=== PATIENT | male | born 1980 | race Caucasian/White ===

== ENCOUNTER 2019-09-16 07:49 | Inpatient (IN) | payer BC, SELFPAY ==
[~2019-09-16] VITALS: Ht 188 cm; Wt 96.1 kg
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
[2019-09-16] MEDS ORDERED: OLANZapine ORAL DISINTEGRATING TAB 5MG PO PRN (10:00)
[2019-09-16] MEDS ORDERED: ACETAMINOPHEN TAB 650MG DOSE (2X325MG) PO PRN (10:00)
[2019-09-16] MEDS ORDERED: MOM 30ML SUSPENSION UDC PO PRN (10:00)
[2019-09-16 14:08] VITALS: BP 152/102
[2019-09-16] MEDS ORDERED: PROPRANOLOL 10 MG TAB PO ONE (15:00)
[2019-09-16 15:56] VITALS: BP 134/82
[2019-09-16 18:00] VITALS: BP 134/84
[2019-09-16] MEDS: IBUPROFEN 400 MG TAB PO PRN (20:04)
[2019-09-16] MEDS: traZODone 50 MG TAB PO PRN (21:12)
[2019-09-17 06:25] VITALS: BP 136/71
[2019-09-17] MEDS: IBUPROFEN 400 MG TAB PO PRN (08:38)
--- NOTE | 2019-09-17 10:17 | MHHPEPDOC ---
[facility] History & Physical History and Physical DATE OF ADMISSION: Sep 16, 2019 at 09:47 New Patient Tin Cedeno MRN: N/A Date of : N/A Date of Service: 09/17/2019 Chief Complaint "I want to start antidepressant." History of Present Illness The patient, a 38-year-old man who was seen in the ER by myself, is admitted to the inpatient unit. He reports that since his admission yesterday he has been feeling somewhat better, finding the environment more sociable and that he has begun to reflect. Initially, he reported feeling ambivalent and frightened of the unit especially the locked nature. 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 He reports he was able to sleep well last night and feels motivated for treatment. He reports he is ready to try an antidepressant reporting that his long-term depressed mood and difficulty adjusting is a significant problem for him. He continues to discuss about the psychosocial issues that have brought him in but feels safe here, reportedly "safer than I have felt in a long time." The psychosocial information is extracted from my previous note and updated as appropriate. Review Of Systems Depression: As above. Anxiety: No changes. Tere: No changes. Psychotic: No changes. Trauma: No changes. Borderline: No changes. Past Psychiatric History The patient reports no history of psychiatric admissions, medication trials or current follow up. Allergies Please see below. Family Psychiatric History The patient denies/is unaware any history of mental health history including addictions and suicide. Social History The patient currently lives alone as his girlfriend had recently left him. He reports that the relationship was relatively long of 2 years. He reports that their relationship had been cantankerous and had been going "on the rocks." He is never with no children at this time. He has no history of trauma or abuse growing up. Reports good social support from his mother. He reports growing up in the local area. He describes that his alcohol use can be problematic and that he will drink to excess at times. Reports smoking tobacco, roughly half a pack a day. Denies any cannabis use, opioids, stimulants or other problems at this time. Substance Abuse History As above for opioids and tobacco. Medical History Patient has no significant past medical history. Mental Status Examination General: Well dressed with good hygiene Speech: Spontaneous and fluid Thought processes: Linear and logical MSK: Smooth and coordinated gait, no signs of tremors or involuntary orofacial movements Thought content: Future orientated Abstract reasoning, and computation: Intact Description of associations: Intact Description of abnormal or psychotic thoughts: Denies any suicidal or homicidal ideation. Denies any auditory or visual hallucinations. Does not appear to be responding to internal stimuli. Does not appear to be endorsing any bizarre or paranoid ideation. Judgment: fair Insight: fair Orientation: Alert and orientated 3 Cognition: Grossly normal Recent and remote memory: Intact Attention span and concentration: Intact Fund of knowledge: Adequate Mood: "okay" Affect: Euthymic with a full range Diagnoses Unspecified depressive disorder. Alcohol use disorder, moderate. Tobacco use disorder, moderate. Assessment and Plan Unspecified depressive disorder: Start Wellbutrin 150 mg extended release daily. Discussed risks, benefits, and potential side effects with patient as well as alternative options. Alcohol use disorder: Continue CIWA. Tobacco use disorder: Offered nicotine patch. Disposition Patient will need to be admitted for greater than 2 midnights in order to observe and treat his depression and plan for safe discharge. Problem List 1. Risk for suicide. 2. Depression. 3. Substance abuse. Initial Treatment Plan 1. Patient was admitted on a 9.39 legal status. 2. Complete history was obtained. 3. With patients permission, family will be contacted and database will be expanded. 4. Patients medication regimen will be reviewed and changed accordingly. 5. Patient will be provided with protected environment. 6. Patient will be treated with individual, group, and milieu therapies. 7. Patient will receive supportive psych-education. 8. Discharge planning will commence immediately. 9. Outpatient follow-up treatment will be strongly recommended. 10. The initial treatment plan will focus initially on: Estimated Length Of Stay 3 days Time Spent 70 minutes. Friday Vital Signs Vital Signs Date Time Temp Pulse Resp B/P (MAP) Pulse Ox O2 Delivery O2 Flow Rate FiO2 09/17/19 06:25 98.8 69 18 136/71 (92) Room Air 09/16/19 12:43 99 Medications Scheduled Bupropion Hcl (Bupropion Xl) 150 Mg Tab.er.24h, 150 MG PO DAILY for mood Scheduled PRN Trazodone HCl (Trazodone HCl) 100 Mg Tablet, 100 MG PO QHSP PRN for INSOMNIA Allergies Coded Allergies: No Known Allergies (Unverified , 09/16/19) MUKESH ROE 3, 2020 10:17
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
[2019-09-17 18:00] VITALS: BP 150/88
[2019-09-17] MEDS: buPROPion **XL** TABLET 150MG (WELLBUTRIN XL) PO SCH (20:57)
[2019-09-17] MEDS: traZODone 50 MG TAB PO PRN (21:44)
[2019-09-18 06:39] VITALS: BP 118/78
[2019-09-18] MEDS: buPROPion **XL** TABLET 150MG (WELLBUTRIN XL) PO SCH (08:17)
[2019-09-18] MEDS: IBUPROFEN 400 MG TAB PO PRN ×2 (08:18→18:35)
[2019-09-18] MEDS ORDERED: INFLUENZA QUADRIVALENT PF VACCINE 0.5ML SYRINGE (90686) IM ONE (09:00)
[2019-09-18 15:51] VITALS: BP 156/85
--- NOTE | 2019-09-18 19:27 | MHIPN ---
DATE: 09/18/2019 The patient today states, "I am feeling great." He is denying suicidal ideation. He says that he slept good last night and he has no complaints. MENTAL STATUS EXAMINATION: He is alert and oriented times three. He is pleasant, cooperative, verbally spontaneous. Eye contact is good. There is no formal thought disorder. His mood is "great." His affect is full range and appropriate. He is not psychotic, suicidal or homicidal. He is denying suicidal or homicidal ideation. Concentration fair. Insight and judgment fair. DIAGNOSES: Unspecified depressive disorder. Alcohol use disorder, moderate. TREATMENT PLAN: At this point, we will continue to monitor the patient for continued elevation and stabilization of his mood and continued resolution of suicidal ideation and titrate his medications as indicated. SANKET
[2019-09-18] MEDS: traZODone 100 MG TAB PO PRN (21:50)
[2019-09-19 06:38] VITALS: BP 149/85
[2019-09-19] MEDS: IBUPROFEN 400 MG TAB PO PRN (07:23)
[2019-09-19] MEDS: buPROPion **XL** TABLET 150MG (WELLBUTRIN XL) PO SCH (08:16)
[2019-09-19 15:44] VITALS: BP 136/84
--- NOTE | 2019-09-19 19:54 | MHIPN ---
DATE: 09/19/2019 The patient today states that he is feeling good. He has no complaints other than he does not sleep as well and would like for me to increase his trazodone. He is denying suicidal thoughts. MENTAL STATUS EXAMINATION: He is alert and oriented times three. He is pleasant, cooperative, verbally spontaneous. Eye contact is good. Mood is good. Affect is full range and appropriate. He is not psychotic, suicidal or homicidal. Concentration is fair. Memory intact. Insight and judgment good. DIAGNOSES: Unspecified depressive disorder. Alcohol use disorder, moderate.. TREATMENT PLAN: At this point, we will continue to monitor the patient for continued elevation and stabilization of his mood and continued resolution of suicidal ideations. We will increase the trazodone to 150 mg for sleep. MTDD
[2019-09-19] MEDS: traZODone 100 MG TAB PO PRN (22:32)
[2019-09-20 06:18] VITALS: BP 138/80
[2019-09-20] MEDS: buPROPion **XL** TABLET 150MG (WELLBUTRIN XL) PO SCH (08:24)
[2019-09-20] MEDS ORDERED: TRAZ10TA PO (10:30)
[2019-09-20] MEDS ORDERED: BUPR150T3 PO (10:30)
--- NOTE | 2019-09-20 10:31 | MHDSPDOC ---
[facility] Discharge Summary Discharge Summary DATE OF ADMISSION: Sep 16, 2019 at 09:47 DATE OF DISCHARGE: 09/20/19 Discharge Tin Cedeno MRN: N/A Date of : N/A Date of Service: 09/20/2019 Diagnoses Adjustment disorder, with disruption of mood and conduct Alcohol use disorder, moderate. Tobacco use disorder, moderate. History of Present Illness The patient, a 38-year-old man who was seen in the ER by myself, is admitted to the inpatient unit. He reports that since his admission yesterday he has been feeling somewhat better, finding the environment more sociable and that he has begun to reflect. Initially, he reported feeling ambivalent and frightened of the unit especially the locked nature. 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 He reports he was able to sleep well last night and feels motivated for treatment. He reports he is ready to try an antidepressant reporting that his long-term depressed mood and difficulty adjusting is a significant problem for him. He continues to discuss about the psychosocial issues that have brought him in but feels safe here, reportedly "safer than I have felt in a long time." The psychosocial information is extracted from my previous note and updated as appropriate. Consultants Involved Hospitalist/PCP screening Treatment and Progress On The Unit The patient was admitted to the inpatient unit after being seen in the ER. After initial intake, he was started on Wellbutrin 150 mg daily. Observed over the weekend with positive results, his depression resolved well further suggesting potentially adjustment disorder versus MDD. However, it's still difficult to determine in the setting of alcohol use. The patient made good progress, became euthymic and had normal mental status examination on the day of discharge, he had made significant improvements and had wanted to go. He was slated for discharge and discharged much improved, euthymic. Discharge Assessment The patient, a 38-year-old man with no previous psychiatric history, presents depressed after multiple psychosocial stressors. A low dose of Wellbutrin as well as a supportive environment does him well. His depression resolves quickly and completely. He is discharged to the care of his mother and on the day of discharge denies any suicidal or homicidal ideation and had done so through the entirety of his admission. He had a normal mental status exam, had good insight, was cooperative with discharge and declined further voluntary admission, and thus was discharged in good veronica. Mental Status Examination General: Well dressed with good hygiene Speech: Spontaneous and fluid Thought processes: Linear and logical MSK: Smooth and coordinated gait, no signs of tremors or involuntary orofacial movements Thought content: Future orientated Abstract reasoning, and computation: Intact Description of associations: Intact Description of abnormal or psychotic thoughts: Denies any suicidal or homicidal ideation. Denies any auditory or visual hallucinations. Does not appear to be responding to internal stimuli. Does not appear to be endorsing any bizarre or paranoid ideation. Judgment: fair Insight: fair Orientation: Alert and orientated 3 Cognition: Grossly normal Recent and remote memory: Intact Attention span and concentration: Intact Fund of knowledge: Adequate Mood: "okay" Affect: Euthymic with a full range Follow Up The social work team worked during the predischarge meeting in order to evaluate for further issues of lethality address them fully before discharge. They worked on safety planning with the patient's family members in order to ensure that the patient will have a safe and effective discharge. Time Spent The amount of time spent in the coordination of care for this patient was approximately 60 minutes. Friday Vital Signs/I&Os Vital Signs Date Time Temp Pulse Resp B/P (MAP) Pulse Ox O2 Delivery O2 Flow Rate FiO2 09/20/19 06:18 99.3 100 18 138/80 (99) 09/17/19 06:25 Room Air 09/16/19 12:43 99 Medications Scheduled Bupropion Hcl (Bupropion Xl) 150 Mg Tab.er.24h, 150 MG PO DAILY for mood for 7 Days, #7 Scheduled PRN Trazodone HCl (Trazodone HCl) 100 Mg Tablet, 100 MG PO QHSP PRN for INSOMNIA for 7 Days, #7 Allergies Coded Allergies: No Known Allergies (Unverified , 09/16/19) MUKESH ROE DO Sep 20, 2019 10:31
[2019-09-20] MEDS ORDERED: INFLUENZA QUADRIVALENT PF VACCINE 0.5ML SYRINGE (90686) IM ONE (13:00)
[2019-09-20 18:00] VITALS: BP 154/84
[2019-09-20] MEDS: traZODone 100 MG TAB PO PRN (23:03)
[2019-09-21 06:31] VITALS: BP 140/81
[2019-09-21] MEDS: buPROPion **XL** TABLET 150MG (WELLBUTRIN XL) PO SCH (08:05)
[2019-09-21] MEDS: IBUPROFEN 400 MG TAB PO PRN (08:06)
== END 2019-09-21 09:45 | disposition home or self-care (01) | DRG 755 ==
LOC: M ED 07:49 → M ED INP 09:47 → M PSY 12:59
PROVIDERS: ADMIT Psychiatry & Neurology Addiction Medicine; ATTEND Psychiatry & Neurology Addiction Medicine
DX: F43.25 Adjustment disorder with mixed disturbance of emotions and conduct (principal); F10.20 Alcohol dependence, uncomplicated; F17.210 Nicotine dependence, cigarettes, uncomplicated; Z63.5 Disruption of family by separation and divorce; Z79.899 Other long term (current) drug therapy; I10 Essential (primary) hypertension; F41.9 Anxiety disorder, unspecified; Z81.8 Family history of other mental and behavioral disorders; S00.83XD Contusion of other part of head, subsequent encounter; X58.XXXD Exposure to other specified factors, subsequent encounter